=== PATIENT | female | born 1985 | race Caucasian/White ===

== ENCOUNTER 2021-09-08 02:58 | Emergency (ER) | payer MEDICAID ==
[~2021-09-08] VITALS: Ht 157.5 cm; Wt 50.3 kg
[2021-09-08 03:10] VITALS: BP 109/75
--- NOTE | 2021-09-08 03:24 | NUR ---
ERMD IN TRIAGE FOR MSE.
[2021-09-08] MEDS ORDERED: NAPR-54 PO (03:45)
[2021-09-08] MEDS ORDERED: SULF-59 PO (03:45)
--- NOTE | 2021-09-08 03:49 | NUR ---
SANDWICH, PUDDING AND JUICE PROVIDED AT THIS TIME.
--- NOTE | 2021-09-08 03:50 | NUR ---
PATIENT ASSESSMENT COMPLETED BY MARCOS , NO NURSING INTERVENTIONS NEEDED AT THIS TIME.
[2021-09-08 03:51] VITALS: BP 109/75
--- NOTE | 2021-09-08 03:51 | NUR ---
Patient discharged with v/s stable. Written and verbal after care instructions given and explained. Patient alert, oriented and verbalized understanding of instructions. Ambulatory with steady gait. All questions addressed prior to discharge. ID band removed. Patient advised to follow up with PMD. Rx of BACTRIM & NAPROSYN given. Patient educated on indication of medication including possible reaction and side effects. Opportunity to ask questions provided and answered.
== END 2021-09-08 03:51 | disposition home or self-care (01) ==
LOC: MED 02:58
DX: L01.00 Impetigo, unspecified (principal); Z59.00 Homelessness unspecified; Z90.49 Acquired absence of other specified parts of digestive tract; Z79.899 Other long term (current) drug therapy
CPT/HCPCS: 99283